=== PATIENT | male | born 1950 | race African-American/Black ===

== ENCOUNTER 2016-06-16 16:01 | Inpatient (IN) | payer MEDICARE ==
--- NOTE | 2016-06-16 16:24 | EDPRACDOC ---
- General Information Information Source: Patient Mode Of Arrival: Ambulance - History of Present Illness Onset: Today HPI: Patient reports increased SOB today, states "it's my congestive heart failure". Patient denies fever, chills, reports cough without sputum production. No CP. Shortness of Breath: Mild Relevant History: Reports: Heart Failure (CHF) Cough: Reports: Non-productive SOB Worsens with: Reports: Exertion, Coughing SOB Improves with: Reports: Rest Associated Signs and symptoms: Reports: Cough <Carmen Salter - Last Filed: 06/16/16 17:48> <Maritza Estrada - Last Filed: 06/16/16 18:03> - General Information Chief Complaint: Dyspnea/Resp distress Stated Complaint: RESP Time Seen by Provider: 06/16/16 16:06 Home Medications: Home Medications Aspirin [Aspirin, Chewable] 81 mg PO DAILY 10/18/12 Omeprazole [Prilosec] 20 mg PO DAILY 03/31/16 Hydralazine HCl 50 mg PO TID #90 04/02/16 Isosorbide Dinitrate 10 mg PO TID #90 tablet 04/02/16 Albuterol Sulfate [Proair Hfa] 2 puff INH Q4-6H PRN 06/16/16 Amiodarone [Cordarone, Pacerone] 200 mg PO BID 06/16/16 Furosemide [Lasix] 20 mg PO BID 06/16/16 Losartan Potassium [Cozaar] 100 mg PO DAILY 06/16/16 Allergies/Adverse Reactions: Allergies Allergy/AdvReac Type Severity Reaction Status Date / Time No Known Allergies Allergy Verified 06/16/16 16:11 - Treatment Prior to ED Arrival Reported Medications/Treatment [employer] [facility] Treatment BLS IV No <Carmen Salter - Last Filed: 06/16/16 17:48> - Treatment Prior to ED Arrival Reported Medications/Treatment [employer] EMS Treatment BLS IV No <Maritza Estrada - Last Filed: 06/16/16 18:03> ED Past Medical History - History Reviewed Yes Nurses notes reviewed and agree except as marked - Patient Medical History Cardiac History: Reports: Hypertension, Congestive Heart Failure Psychological History: Denies: Depression, Substance Use Disorder Systemic History: Denies: Cancer Surgical History: Reports: Tonsillectomy/Adnoidectomy - Family Medical History Reports: Cardiac Disorders (Mother) - Social Medical History Smoking Status: Heavy tobacco smoker (5 or more cigarettes/day or daily pipe/ cigar) Social History: Denies: Substance Use Disorder ETOH: None Substance Abuse: None Lives In: Home <Carmen Salter - Last Filed: 06/16/16 17:48> EDM Review of Systems - Review of Systems ROS Negative Except as Marked: Yes All systems reviewed and were negative except as marked Constitutional: No Symptoms Reported Eyes: No Symptoms Reported Ears: No Symptoms Reported Throat: No Symptoms Reported Nose: No Symptoms Reported Mouth: No Symptoms Reported Respiratory: Cough, Shortness of Breath Cardiovascular: No Symptoms Reported Gastrointestinal: No Symptoms Reported Genitourinary: No Symptoms Reported Neurological: No Symptoms Reported <Carmen Salter - Last Filed: 06/16/16 17:48> - Physical Exam Constitutional: Alert (Awake), No apparent distress Oriented to: Time, Person, Place Last recorded Vital Signs: Last Vital Signs Temp 98.8 F 06/16/16 16:08 Pulse 62 06/16/16 16:08 Resp 16 06/16/16 16:08 BP 169/75 06/16/16 16:08 Pulse Ox 96 06/16/16 16:08 Oxygen Pulse Oxygen Saturation 96 O2 Device Oxygen Flow Rate Fraction of Inspired Oxygen ( FIO2) - HEENT Head: Normal ( normocephalic) Eye Exam: Normal (PERRL, EOMI, Sclera white) Oropharynx: Normal (Pharynx:Moist without exudate,Gums-no swelling) Tympanic Membrane: Normal ENT EAC: Normal TMJ: Normal Nose: No Symptoms Reported (septum midline) Neck: Normal (FROM, trachea at midline) - Respiratory/Cardiovascular Respiratory: Normal - CTA (BBS clear to auscultation without adventitious sounds ) Cardiovascular: Normal (RRR without murmur, gallop or rub) - GI Auscultation: Normal (NABS) Tenderness: Non tender Rectal Exam: Heme negative stool GI Comment: Patient reported 1 episode of bright red blood per rectum 3 days ago with a bowel movement, denies dark/tarry stools or multiple episodes of blood in stool. - Musculoskeletal Back: Normal (Non-Tender) Extremities: Other (+1 pitting edema) - Integumentary Skin: Normal, Warm, Dry Lymphatics: Normal (no adenopathy) - Neurologic Memory Impaired: Normal Motor Function: Normal (Normal tone, Pulses 2+ No cyanosis or edema, FROM) Mood Description: Normal <Giana Saltertany Vickey - Last Filed: 06/16/16 17:48> - Physical Exam Last recorded Vital Signs: Last Vital Signs Temp 98.8 F 06/16/16 16:08 Pulse 69 06/16/16 17:12 Resp 20 06/16/16 17:12 BP 156/79 06/16/16 17:12 Pulse Ox 94 06/16/16 17:12 Oxygen Pulse Oxygen Saturation 94 O2 Device Oxygen Flow Rate Fraction of Inspired Oxygen ( FIO2) <Maritza Estrada - Last Filed: 06/16/16 18:03> ED SOB MDM - Re-evaluation Re-evaluation 1 Re-evaluation Time: 17:48 Re-evaluation: O2 sats dropped to 89% on RA while ambulating. - Results Result Diagrams: 06/16/16 16:15 06/16/16 16:15 - EKG EKG #1 EKG Time: 16:17 -: Yes EKG interpreted by me Rate: bpm: 59 [place]: Normal Block: 2 ST: Normal <Carmen Salter - Last Filed: 06/16/16 17:48> - Results Result Diagrams: 06/16/16 16:15 06/16/16 16:15 Results: WBC 8.1 xk/uL (3.8-10.8) 06/16/16 16:15 RBC 3.22 xM/uL (4.70-6.10) L 06/16/16 16:15 Hgb 8.2 g/dL (14.0-18.0) L 06/16/16 16:15 Hct 25.8 % (42-52) L 06/16/16 16:15 MCV 80 fL (80-94) 06/16/16 16:15 MCH 25.5 pg (27-32) L 06/16/16 16:15 MCHC 31.8 g/dl (33-36) L 06/16/16 16:15 RDW 18.7 % (11.5-14.5) H 06/16/16 16:15 Plt Count 244 xk/uL (130-400) 06/16/16 16:15 MPV 9.0 fL (7.4-10.4) 06/16/16 16:15 Neut % (Auto) 65.4 % (45-76) 06/16/16 16:15 Lymph % (Auto) 22.4 % (17-44) 06/16/16 16:15 [place] % (Auto) 10.3 % (3-10) H 06/16/16 16:15 Eos % (Auto) 0.6 % (0-5) 06/16/16 16:15 Baso % (Auto) 1.3 % (0-2) 06/16/16 16:15 Absolute Neuts (auto) 5.27 xk/uL (1.7-8.2) 06/16/16 16:15 Absolute Lymphs (auto) 1.78 xk/uL (0.65-4.75) 06/16/16 16:15 Platelet Estimate Occ giant platelet (NORMAL) 06/16/16 16:15 RBC Morphology 1+ hypo 2+ polychrom 06/16/16 16:15 RBC Morphology 1+ hypo 2+ polychrom 06/16/16 16:15 PT 10.6 SEC (9.2-11.2) 06/16/16 16:15 INR 1.0 06/16/16 16:15 APTT 24.3 SEC (22-35) 06/16/16 16:15 Puncture Site Left radial 06/16/16 16:45 pH 7.470 pH UNITS (7.35-7.45) H 06/16/16 16:45 pCO2 31.0 mmHg (35-45) L 06/16/16 16:45 pO2 68.0 mmHg (80-100) L 06/16/16 16:45 HCO3 22.6 MMOL/L (22-26) 06/16/16 16:45 Total CO2 23.6 MMOL/L (23-27) 06/16/16 16:45 Base Excess -0.2 (+/- 2) 06/16/16 16:45 FiO2 % 21 06/16/16 16:45 Specimen Drawn By Dp 06/16/16 16:45 Sodium 143 mEq/L (137-146) 06/16/16 16:15 Potassium 3.6 mEq/L (3.5-5.1) 06/16/16 16:15 Chloride 108 mEq/L (98-107) H 06/16/16 16:15 Carbon Dioxide 24 mMOL/L (22-33) 06/16/16 16:15 Anion Gap 15 mEq/L (8-16) 06/16/16 16:15 BUN 25 MG/DL (9-20) H 06/16/16 16:15 Creatinine 2.20 MG/DL (0.66-1.25) H 06/16/16 16:15 Estimated GFR (MDRD) 36 mL/min (>=60) L 06/16/16 16:15 Glucose 87 MG/DL (70-99) 06/16/16 16:15 Calculated Osmolality 278 MOs/Kg (270-290) 06/16/16 16:15 Calcium 8.8 MG/DL (8.4-10.2) 06/16/16 16:15 Total Bilirubin 0.6 MG/DL (0.2-1.3) 06/16/16 16:15 AST 50 IU/L (17-59) 06/16/16 16:15 ALT 65 IU/L (21-72) 06/16/16 16:15 Alkaline Phosphatase 134 IU/L (50-160) 06/16/16 16:15 Creatine Kinase 215 IU/L (55-170) H 06/16/16 16:15 CK-MB (CK-2) 1.8 ng/mL (0-4.5) 06/16/16 16:15 Troponin I 0.07 ng/mL (<.04) 06/16/16 16:15 Jse-B-Zcnvzudpslv Pept 4740 pg/mL (0-900) H 06/16/16 16:15 Total Protein 7.9 G/DL (6.3-8.2) 06/16/16 16:15 Albumin 4.3 G/DL (3.5-5.0) 06/16/16 16:15 Urine Color Yellow 06/16/16 16:50 Urine Clarity Clear 06/16/16 16:50 Urine pH 5.0 (5.0-8.0) 06/16/16 16:50 Ur Specific [place] 1.020 (1.003-1.035) 06/16/16 16:50 Urine Protein Trace (NEG/TRACE) 06/16/16 16:50 Urine Glucose (UA) Neg (NEGATIVE) 06/16/16 16:50 Urine Ketones Neg (NEGATIVE) 06/16/16 16:50 Urine Occult Blood Neg (NEG/TRACE) 06/16/16 16:50 Urine Nitrite Neg (NEGATIVE) 06/16/16 16:50 Urine Bilirubin Neg (NEGATIVE) 06/16/16 16:50 Urine Urobilinogen 2 MG/DL (0-1) H 06/16/16 16:50 Ur Leukocyte Esterase Trace (NEGATIVE) 06/16/16 16:50 Urine RBC 0-2 (0-2) 06/16/16 16:50 Urine WBC 2-5 (0-2) H 06/16/16 16:50 Ur Epithelial Cells 2+ 06/16/16 16:50 Urine Bacteria Few (NEG/FEW) 06/16/16 16:50 Hyaline Casts 0-2 (0-2) 06/16/16 16:50 Urine Mucus Occ (NEG/OCC) 06/16/16 16:50 Lab Results 06/16/16 06/16/16 06/16/16 16:50 16:45 16:15 WBC RBC Hgb Hct MCV MCH MCHC RDW Plt Count MPV Neut % (Auto) Lymph % (Auto) [place] % (Auto) Eos % (Auto) Baso % (Auto) Absolute Neuts (auto) Absolute Lymphs (auto) Platelet Estimate RBC Morphology PT 10.6 INR 1.0 APTT 24.3 Puncture Site Left radial pH 7.470 H pCO2 31.0 L pO2 68.0 L HCO3 22.6 Total CO2 23.6 Base Excess -0.2 FiO2 % 21 Specimen Drawn By Dp Sodium Potassium Chloride Carbon Dioxide Anion Gap BUN Creatinine Estimated GFR (MDRD) Glucose Calculated Osmolality Calcium Total Bilirubin AST ALT Alkaline Phosphatase Creatine Kinase CK-MB (CK-2) Troponin I Gtl-L-Mmkgrjncivs Pept Total Protein Albumin Urine Color Yellow Urine Clarity Clear Urine pH 5.0 Ur Specific [place] 1.020 Urine Protein Trace Urine Glucose (UA) Neg Urine Ketones Neg Urine Occult Blood Neg Urine Nitrite Neg Urine Bilirubin Neg Urine Urobilinogen 2 H Ur Leukocyte Esterase Trace Urine RBC 0-2 Urine WBC 2-5 H Ur Epithelial Cells 2+ Urine Bacteria Few Hyaline Casts 0-2 Urine Mucus Occ 06/16/16 06/16/16 16:15 16:15 WBC 8.1 RBC 3.22 L Hgb 8.2 L Hct 25.8 L MCV 80 MCH 25.5 L MCHC 31.8 L RDW 18.7 H Plt Count 244 MPV 9.0 Neut % (Auto) 65.4 Lymph % (Auto) 22.4 [place] % (Auto) 10.3 H Eos % (Auto) 0.6 Baso % (Auto) 1.3 Absolute Neuts (auto) 5.27 Absolute Lymphs (auto) 1.78 Platelet Estimate Occ giant platelet RBC Morphology 2+ polychrom PT INR APTT Puncture Site pH pCO2 pO2 HCO3 Total CO2 Base Excess FiO2 % Specimen Drawn By Sodium 143 Potassium 3.6 Chloride 108 H Carbon Dioxide 24 Anion Gap 15 BUN 25 H Creatinine 2.20 H Estimated GFR (MDRD) 36 L Glucose 87 Calculated Osmolality 278 Calcium 8.8 Total Bilirubin 0.6 AST 50 ALT 65 Alkaline Phosphatase 134 Creatine Kinase 215 H CK-MB (CK-2) 1.8 Troponin I 0.07 Hhu-P-Ouzrlepafmi Pept 4740 H Total Protein 7.9 Albumin 4.3 Urine Color Urine Clarity Urine pH Ur Specific [place] Urine Protein Urine Glucose (UA) Urine Ketones Urine Occult Blood Urine Nitrite Urine Bilirubin Urine Urobilinogen Ur Leukocyte Esterase Urine RBC Urine WBC Ur Epithelial Cells Urine Bacteria Hyaline Casts Urine Mucus - Diagnostic Imaging Chest Image interpreted by: Radiologist Diagnostic Imaging Comments: Similar appearance to prior studies with cardiomegaly and interstitial pulmonary edema suspicious for mild congestive heart failure. <Maritza Estrada - Last Filed: 06/16/16 18:03> <Carmen Salter - Last Filed: 06/16/16 17:48> - Departure Yes I personally saw and evaluated the patient. Disposition: Admit IP To This Hospital Education/Counseling Given To: Patient Education/Counseling Given Regarding: Diagnosis, Treatment Decision to Admit Time: 18:03 Decision to admit date: 06/16/16 Decision to admit: from ED - Physician Consulted Hospitalist Provider Called: Iraj Higginbotham <Maritza Estrada - Last Filed: 06/16/16 18:03> - Departure Condition: Fair Final Diagnosis: ADHF (acute decompensated heart failure), Hypoxia, ACUTE ON CHRONIC ANEMIA, Chronic renal failure Instructions: *Heart Failure (Activity, Diet, Worsening Symptoms, Weight Monitoring)(ED), Renal Failure Diet (GEN) Referrals: Yonis Salazar MD [Primary Care Provider] - One Week
[2016-06-16 16:49] LABS: AUTOMATED EOSINOPHIL 0.6 % (0-5)
--- NOTE | 2016-06-16 16:49 | DIRPT ---
CLINICAL DATA: 65-year-old with shortness of breath since yesterday. History of congestive heart failure. EXAM: CHEST 2 VIEW COMPARISON: 03/31/2016, 01/17/2014 and 01/16/2014. FINDINGS: Stable mild cardiomegaly with vascular congestion, fissural thickening and [place] B lines consistent with interstitial pulmonary edema. No confluent airspace opacity or significant pleural effusion. Prominent nipple shadows are noted bilaterally. The bones appear unchanged. IMPRESSION: Similar appearance to prior studies with cardiomegaly and interstitial pulmonary edema suspicious for mild congestive heart failure. Electronically Signed By: Yasir Fischer M.D. On: 06/16/2016 16:47
[2016-06-16 16:52] LABS: ALLEN'S TEST PASS; BEb -0.2 (+/- 2); TCO2 23.6 MMOL/L (23-27)
[2016-06-16 16:53] LABS: ABG Draw Site Left Radial; ABG Draw Tech DP
[2016-06-16 16:55] LABS: AUTOMATED BASOPHIL 1.3 % (0-2); AUTOMATED LYMPH 22.4 % (17-44); AUTOMATED MONOCYTE 10.3 % (3-10); AUTOMATED NEUTROPHIL 65.4 % (45-76)
[2016-06-16 16:56] LABS: PARTIAL THROMB. TIME 24.3 SEC (22-35)
[2016-06-16 16:57] LABS: BLOOD UREA NITROGEN 25 MG/DL (9-20); CALCIUM 8.8 MG/DL (8.4-10.2); CALCULATED OSMOLALITY 278 MOs/Kg (270-290); CHLORIDE 108 mEq/L (98-107); CPK TOTAL WITH POSSIBLE MB 215 IU/L (55-170); GLUCOSE 87 MG/DL (70-99); SODIUM LEVEL 143 mEq/L (137-146); TOTAL PROTEIN 7.9 G/DL (6.3-8.2)
[2016-06-16] MEDS ORDERED: FUROSEMIDE 40 MG/4 ML VIAL IV ONE (16:58)
[2016-06-16 17:12] LABS: RBC/URINE 0-2 (0-2)
[2016-06-16 17:12] LABS: CPKMB 1.8 ng/mL (0-4.5)
[2016-06-16 17:22] LABS: LEUKOCYTES/URINE TRACE (NEGATIVE); NITRITE/URINE NEG (NEGATIVE); URINE OCCULT BLOOD NEG (NEG/TRACE)
--- NOTE | 2016-06-16 19:05 | HISTPHYS ---
- Chief Complaint shortness of breath - History of Present Illness PRIMARY CARE PROVIDER: Dr. Salazar HPI: The patient anuradha 65 yo man who presents with shortness of breath. He denies any chest pain at this time. Onset: 2 days ago. Duration: progressively worsening. Character: couldn't get a good breath. Worsened to the point that he could not get a good breath even sitting. Alleviated by: Nothing. Exacerbated by: any exertion. Associated Symptoms: Coughing productive of white sputum. Wheezing. Chills. Thinks he had a fever. Diaphoresis. No chest pain or palpitations. No leg swelling. No weight gain. He has also noted blood in his stool for 2 days but stopped 2 days ago. Reports colonoscopy in [place] 3 months ago; said it was normal but was told to start PPI. Treatments: none at home except usual medications. Per previous consult by Dr. Siddiqui, the patient has significant sinus node dysfunction and his beta blockers were stopped for this reason. - Medical History Cardiac History: Reports: Hypertension, Congestive Heart Failure (ECHO 03/17: EF55-60%. Mild-mod TR, Mild MR. RV pressure 51mmHg) Systemic History: Denies: Cancer Psychological History: Denies: Depression, Substance Use Disorder ECHOCARDIOGRAM 03/31/2016: FINDINGS ------- Procedure:2D images, m-mode, color and spectral Doppler were obtained and reviewed. ECG rhythm:Sinus rhythm. Study quality:This was a technically adequate study. Left Ventricle:The left ventricular size is normal. There is borderline concentric left ventricular hypertrophy. There is normal global left ventricular contractility. Overall left ventricular systolic function is normal with, an EF between 55 - 60 %. The diastolic filling pattern is normal for the age of the patient. Right Ventricle:The right ventricle is normal in size and function. Left Atrium:The left atrium is normal in size. Right Atrium:The right atrium is normal in size and function. Aortic Valve:The aortic valve is trileaflet and appears structurally normal. There is mild aortic valve sclerosis. There is mild aortic regurgitation. The aortic pressure half-time by doppler is 563ms. Mild aortic stenosis with peak/mean pressure gradient of 23mmHg / 13mmHg , the aortic valve area by continuity equation is 1.99cm2. Mitral Valve:Normal appearing mitral valve. There is trace to mild mitral regurgitation. Tricuspid Valve:The tricuspid valve appears structurally normal. Mild-to- moderate tricuspid regurgitation present. The right ventricular systolic pressure, as measured by Doppler, is 51mmHg. Pulmonic Valve:The pulmonic valve is normal. There is no pulmonic regurgitation present. Aorta: The aortic root, ascending aorta and aortic arch appear TDS. IVC:The inferior vena cava is dilated with poor inspiratory collapse which is consistent with estimated right atrial pressure of 20 mmHg. Pericardium:There is no pericardial effusion. CONCLUSIONS 1. There is borderline concentric left ventricular hypertrophy. 2. Overall left ventricular systolic function is normal with, an EF between 55 - 60 %. 3. The diastolic filling pattern is normal for the age of the patient. 4. The left atrium is normal in size. 5. There is mild aortic regurgitation. 6. Mild aortic stenosis with peak/mean pressure gradient of 23mmHg / 13mmHg , the aortic valve area by continuity equation is 1.99cm2. 7. There is trace to mild mitral regurgitation. 8. Vmfe-[id number]-elrwyefe tricuspid regurgitation present. 9. The right ventricular systolic pressure, as measured by Doppler, is 51mmHg. Reports colonoscopy in [place] 3 months ago; said it was normal but was told to start PPI. - Surgical History Reports: Tonsillectomy/Adnoidectomy - Medictions/Allergies Allergies No Known Allergies Allergy (Verified 06/16/16 16:11) Current Medication List: Reviewed Home Medications Aspirin [Aspirin, Chewable] 81 mg PO DAILY 10/18/12 Omeprazole [Prilosec] 20 mg PO DAILY 03/31/16 Hydralazine HCl 50 mg PO TID #90 04/02/16 Isosorbide Dinitrate 10 mg PO TID #90 tablet 04/02/16 Albuterol Sulfate [Proair Hfa] 2 puff INH Q4-6H PRN 06/16/16 Amiodarone [Cordarone, Pacerone] 200 mg PO BID 06/16/16 Furosemide [Lasix] 20 mg PO BID 06/16/16 Losartan Potassium [Cozaar] 100 mg PO DAILY 06/16/16 - Family History Reports: Cardiac Disorders (Mother: MS.), Respiratory Disorders (Father: asthma. ) - Social History Smoking Status: Heavy tobacco smoker (5 or more cigarettes/day or daily pipe/ cigar) (half ppd. Started 16 yo.) Social History: Denies: Alcohol Use, Substance Use Disorder - Review of Systems GENERAL: Fever, chills, or diaphoresis, and fatigue/malaise. HEENT: No ear pain or discharge. No nasal discharge or bleeding. No throat pain or swelling. No eye pain or eye redness. RESPIRATORY: Shortness of breath. Coughing productive of white sputum. Wheezing. CARDIOVASCULAR: No chest pain or palpitations. GI: No abdominal pain, nausea, vomiting, diarrhea, constipation, or bloody stool. NEUROLOGICAL: No headache or focal weakness. INTEGUMENT: no rashes, itching, or lesions. LYMPHATIC SYSTEM: no lymph node swelling or pain. MUSCULOSKELETAL: no pain or joint swelling. GENITOURINARY: No dysuria or hematuria. ENDOCRINE: No polyuria or polydipsia. HEME: No chronic anemia, bleeding, or easy bruising. - Physical Exam Vital Signs: Initial Vitals Temperature 98.8 F 06/16/16 16:08 Pulse Rate 62 06/16/16 16:08 Respiratory Rate 16 06/16/16 16:08 Blood Pressure 169/75 06/16/16 16:08 Pulse Oxygen Saturation 96 06/16/16 16:08 Vital Signs - 24 hr 06/16/16 06/16/16 06/16/16 16:08 16:11 16:28 Temperature 98.8 F Pulse Rate 62 66 Respiratory 16 21 21 Rate Blood Pressure 169/75 155/73 Pulse Oxygen 96 93 Saturation 06/16/16 17:12 Temperature Pulse Rate 69 Respiratory 20 Rate Blood Pressure 156/79 Pulse Oxygen 94 Saturation - Other Exam Other Exam Findings: GENERAL: Ill-appearing, well nourished, in acute distress. HEENT: Normocephalic, atraumatic; pupils equal and round. Nares patent, without discharge or bleeding. No oropharyngeal lesions or erythema. Mucous membranes are dry. NECK: is supple, no masses, trachea midline. RESPIRATORY: Clear to auscultation bilaterally. Chest wall movements are symmetric. No use of accessory muscles to breathe. Bilateral coarse breath sounds, rhonchi and rales. Scattered bilateral wheezing. Intermittent tachypnea. CARDIOVASCULAR: Normal S1, S2. No rubs, or gallops. PMI non-displaced. Carotids : no carotid bruits. No bradycardia or tachycardia. DP pulses 2+ bilaterally. Minimal JVD. GI: soft, nontender, non-distended, normal active bowel sounds. No hepatosplenomegaly. INTEGUMENT: Clean, dry, and intact. No rashes. No lesions. MUSCULOSKELETAL: Moving all extremities. No cyanosis. No clubbing. Edema: none bilaterally. NEUROLOGICAL: Cranial nerves 2-12 grossly intact. Motor 5/5 throughout. Reflexes : 2+ bilaterally. Babinski: toes downgoing bilaterally. Intact Finger to nose. Sensory grossly intact to light touch. Intact rapid alternating movements bilaterally. No pronator drift. PSYCHIATRIC: Fully oriented. Normal and appropriate affect. LYMPHATIC: No cervical lymphadenopathy. No supraclavicular lymphadenopathy. - Lab Results Laboratory Results - last 24 hr 06/16/16 06/16/16 06/16/16 16:15 16:15 16:15 WBC 8.1 RBC 3.22 L Hgb 8.2 L Hct 25.8 L MCV 80 MCH 25.5 L MCHC 31.8 L RDW 18.7 H Plt Count 244 MPV 9.0 Neut % (Auto) 65.4 Lymph % (Auto) 22.4 Slope % (Auto) 10.3 H Eos % (Auto) 0.6 Baso % (Auto) 1.3 Absolute Neuts (auto) 5.27 Absolute Lymphs (auto) 1.78 Platelet Estimate Occ giant platelet RBC Morphology 2+ polychrom PT 10.6 INR 1.0 APTT 24.3 Puncture Site pH pCO2 pO2 HCO3 Total CO2 Base Excess FiO2 % Specimen Drawn By Sodium 143 Potassium 3.6 Chloride 108 H Carbon Dioxide 24 Anion Gap 15 BUN 25 H Creatinine 2.20 H Estimated GFR (MDRD) 36 L Glucose 87 Calculated Osmolality 278 Calcium 8.8 Total Bilirubin 0.6 AST 50 ALT 65 Alkaline Phosphatase 134 Creatine Kinase 215 H CK-MB (CK-2) 1.8 Troponin I 0.07 Vqd-R-Bgjktdulcdh Pept 4740 H Total Protein 7.9 Albumin 4.3 Urine Color Urine Clarity Urine pH Ur Specific Trimble Urine Protein Urine Glucose (UA) Urine Ketones Urine Occult Blood Urine Nitrite Urine Bilirubin Urine Urobilinogen Ur Leukocyte Esterase Urine RBC Urine WBC Ur Epithelial Cells Urine Bacteria Hyaline Casts Urine Mucus 06/16/16 06/16/16 06/16/16 16:45 16:50 18:48 WBC RBC Hgb Hct MCV MCH MCHC RDW Plt Count MPV Neut % (Auto) Lymph % (Auto) Slope % (Auto) Eos % (Auto) Baso % (Auto) Absolute Neuts (auto) Absolute Lymphs (auto) Platelet Estimate RBC Morphology PT INR APTT Puncture Site Left radial pH 7.470 H pCO2 31.0 L pO2 68.0 L HCO3 22.6 Total CO2 23.6 Base Excess -0.2 FiO2 % 21 Specimen Drawn By Dp Sodium Potassium Chloride Carbon Dioxide Anion Gap BUN Creatinine Estimated GFR (MDRD) Glucose Calculated Osmolality Calcium Total Bilirubin AST ALT Alkaline Phosphatase Creatine Kinase 242 H CK-MB (CK-2) Troponin I Bbm-Y-Jcyjrqkbaou Pept Total Protein Albumin Urine Color Yellow Urine Clarity Clear Urine pH 5.0 Ur Specific Trimble 1.020 Urine Protein Trace Urine Glucose (UA) Neg Urine Ketones Neg Urine Occult Blood Neg Urine Nitrite Neg Urine Bilirubin Neg Urine Urobilinogen 2 H Ur Leukocyte Esterase Trace Urine RBC 0-2 Urine WBC 2-5 H Ur Epithelial Cells 2+ Urine Bacteria Few Hyaline Casts 0-2 Urine Mucus Occ - Diagnostic Findings EK bpm. Sinus bradycardia. Reviewed EKG personally. Chest x-ray, viewed personally: EXAM: CHEST 2 VIEW COMPARISON: 03/31/2016, 01/17/2014 and 01/16/2014. FINDINGS: Stable mild cardiomegaly with vascular congestion, fissural thickening and Sneha B lines consistent with interstitial pulmonary edema. No confluent airspace opacity or significant pleural effusion. Prominent nipple shadows are noted bilaterally. The bones appear unchanged. IMPRESSION: Similar appearance to prior studies with cardiomegaly and interstitial pulmonary edema suspicious for mild congestive heart failure. - Assessment (1) Acute on chronic diastolic congestive heart failure I50.33 - ACUTE ON CHRONIC DIASTOLIC (CONGESTIVE) HEART FAILURE Acute Present on Admission: Yes Per previous consult by Dr. Siddiqui, the patient has significant sinus node dysfunction and his beta blockers were stopped for this reason. The patient has both acute and chronic heart failure. Heart failure type: presumed diastolic. Echocardiogram results from past: Echo 03/2016: EF 55%. Plan: Admit to PCU with telemetry. CHF order set. Diet of 2 g Na. Daily weights with strict I/O's. No IVF unless patient is NPO. As tolerated, give ALICIA inhibitor or ARB. Give Lasix IV scheduled. Replace potassium. Monitor heart rate, blood pressure, and respiratory status carefully. Provide support with oxygen as needed. Provide teaching regarding heart failure, 2g Na diet, daily weights, signs of acute heart failure. (2) Anemia D64.9 - ANEMIA, UNSPECIFIED Acute Present on Admission: Yes Qualifiers: Anemia type: iron deficiency Iron deficiency anemia type: unspecified iron deficiency Qualified Code(s): D50.9 - Iron deficiency anemia, unspecified HISTORY 03/2016: Patient with anemia. MCV is normal, MCH, MCHC are low. This would suggest iron deficiency or chronic disease etiology. Suggest outpatient workup. Patient does have some renal insufficiency. It may be secondary to that. Iron is low, B12 low normal and folate-normal. UPDATE 06/2016: Anemia now worse. Patient reports he had some black and bloody stool 2 days ago but it resolved. Plan: Check labs. Hemoccult. (3) Hypoxia R09.02 - HYPOXEMIA Acute Present on Admission: Yes Plan: O2 by NC and increase to V mask if needed. (4) Tobacco abuse Z72.0 - TOBACCO USE Acute Present on Admission: Yes Counseled to quit. (5) Chronic kidney disease, stage 3 N18.3 - CHRONIC KIDNEY DISEASE, STAGE 3 (MODERATE) Acute Present on Admission: Yes Slightly above baseline. Plan: Avoid nephrotoxins. Monitor Cr. (6) Acute bronchitis J20.9 - ACUTE BRONCHITIS, UNSPECIFIED Suspected Present on Admission: Yes Rhonchi on exam. No pneumonia visible on x-ray. Could have bronchitis. Plan: If no improvement then consider antibiotics. Case Care Discussed with: Patient, Nursing Staff
[2016-06-16 19:08] LABS: CPK TOTAL WITH POSSIBLE MB 242 IU/L (55-170)
[2016-06-16 19:24] LABS: CPKMB 1.7 ng/mL (0-4.5)
[2016-06-16] MEDS ORDERED: Vaccine Screening Complete SCH (21:00)
[2016-06-16] MEDS ORDERED: ALBUTEROL 0.083% 3 ML NEB NEB PRN (22:15)
[2016-06-16] MEDS ORDERED: NITROGLYCERINE 0.4 MG TAB SL PRN (22:15)
[2016-06-16] MEDS ORDERED: Albuterol/Ipratropium Neb 3 ML NEB NEB PRN (22:15)
[2016-06-16] MEDS ORDERED: MORPHINE 2 MG/ML INJECTION IV PRN (22:15)
[2016-06-16 22:46] LABS: FOLATES 11.7 ng/mL (>2.76)
[2016-06-16 22:54] LABS: % SATURATION 4.7 % (20-50)
[2016-06-16] MEDS ORDERED: Pharmacy Order Set Alert SCH (23:00)
[2016-06-17] MEDS: AMIODARONE 200 MG TAB PO SCH ×3 (00:02→21:19)
[2016-06-17] MEDS: ISOSORBIDE DINITRATE 10 MG TAB PO SCH ×4 (00:02→21:19)
[2016-06-17] MEDS ORDERED: ACETAMINOPHEN 325 MG/TAB TABLET PO PRN (04:17)
[2016-06-17] MEDS ORDERED: TEMAZEPAM 15 MG CAP PO PRN (04:17)
[2016-06-17] MEDS ORDERED: ONDANSETRON HCL 4 MG/2 ML VIAL IV PRN (04:17)
[2016-06-17] MEDS ORDERED: ACETAMINOPHEN 325 MG SUPP PR PRN (04:17)
[2016-06-17] MEDS ORDERED: PROMETHAZINE 25 MG/ML VIAL IV PRN (04:17)
[2016-06-17] MEDS ORDERED: SENNA CONCENTRATE TAB PO PRN (04:17)
[2016-06-17] MEDS ORDERED: BENZONATATE 100 MG PERLES PO PRN (04:17)
[2016-06-17] MEDS ORDERED: GUAIFEN 100 MG-DEXTROMETH 10 MG PER 5 ML PO PRN (04:17)
[2016-06-17] MEDS ORDERED: Docusate Sodium 100 MG CAP PO PRN (04:17)
[2016-06-17] MEDS ORDERED: BISACODYL 5 MG TAB PO PRN (04:17)
[2016-06-17] MEDS ORDERED: SIMETHICONE 80 MG TAB PO PRN (04:17)
[2016-06-17 05:04] VITALS: BMI 25.4
[2016-06-17] MEDS: FUROSEMIDE 40 MG/4 ML VIAL IV SCH ×3 (05:22→21:19)
[2016-06-17] MEDS: PANTOPRAZOLE 40 MG TAB PO SCH (05:22)
[2016-06-17] MEDS: LOSARTAN POTASSIUM 50 MG TAB PO SCH (08:00)
[2016-06-17] MEDS: ASPIRIN (CHEWABLE) 81 MG TAB PO SCH (08:00)
[2016-06-17] MEDS ORDERED: Non-Formulary Medication ITEM (Omeprazole 20 MG) PO SCH (09:00)
[2016-06-17] MEDS ORDERED: Non-Formulary Medication ITEM (Losartan Potassium [Cozaar] 100 MG) PO SCH (09:00)
--- NOTE | 2016-06-17 17:05 | GENMEDPROG ---
Subjective Note: Patient feeling significantly better has weaned off oxygen. Notes Reviewed: Yes Events from last night noted and discussed with Clinical Staff Current Medication List: Reviewed Currently: Reports: Ambulating. Denies: Wheezing, SOB, Sputum, Nausea and Vomiting DVT Prophylaxis: Yes - Physical Examination Vital Signs and I&O: Last Vital Signs Temp 97.8 F 06/17/16 11:34 Pulse 57 L 06/17/16 11:34 Resp 17 06/17/16 11:34 BP 169/72 06/17/16 11:34 Pulse Ox 98 06/17/16 11:34 Oxygen Pulse Oxygen Saturation 98 O2 Device Nasal Cannula Oxygen Flow Rate 2 Fraction of Inspired Oxygen ( FIO2) Intake & Output 06/14/16 06/15/16 06/16/16 06/17/16 23:59 23:59 23:59 23:59 Intake Total 480 Output Total 1200 1325 Balance -1200 -845 Patient's weight 71.668 kg General: Alert, Oriented x3, No acute distress, Well appearing, Well nourished HEENT: Normal (Normocephalic, atraumatic;EOMI.Sclera white, Nares patent, without discharge or bleeding. No oropharyngeal lesions or erythema. Mucous membranes are dry.) Lymphatics: Normal (no adenopathy) Respiratory: negative: Accessory Muscle Use, Rales, Rhonchi, Wheezes Cardiovascular: Regular rate and rhythm (No bradycardia or tachycardia), Normal S1, No Gallops,Rubs/Murmurs, Normal S2, Good Pedal Pulses (DP pulses 2+ bilaterally) GI: Normal bowel sounds (normal active sounds), Soft (non-distended), Non tender , No hepatospenomegaly, No masses Extremities/Musculoskeletal: Normal pulses (DP pulses 2+ bilaterally) Skin: Warm,Dry and Intact, No rashes, No significant lesion Neurological: Strength at 5/5 X4 ext (Motor 5/5 throughout.), Normal tone, Cranial nerves 3-12 NL ( 2-12 grossly intact.) Lab/DI/Studies Reviewed: Abnormal Lab Results 06/16/16 06/16/16 06/16/16 16:15 16:15 16:50 RBC 3.22 L Hgb 8.2 L Hct 25.8 L MCH 25.5 L MCHC 31.8 L RDW 18.7 H Josephine % (Auto) 10.3 H Chloride 108 H BUN 25 H Creatinine 2.20 H Estimated GFR (MDRD) 36 L Iron % Saturation Creatine Kinase 215 H Iez-T-Ruoroqaruji Pept 4740 H Urine Urobilinogen 2 H Urine WBC 2-5 H 06/16/16 06/16/16 18:48 21:25 RBC Hgb Hct MCH MCHC RDW Josephine % (Auto) Chloride BUN Creatinine Estimated GFR (MDRD) Iron 18.0 L % Saturation 4.7 L Creatine Kinase 242 H Lcb-W-Ysmrcszgvhr Pept Urine Urobilinogen Urine WBC - Assessment (1) Acute on chronic diastolic congestive heart failure Acute I50.33 - ACUTE ON CHRONIC DIASTOLIC (CONGESTIVE) HEART FAILURE Comment /Plan: Per previous consult by Dr. Siddiqui, the patient has significant sinus node dysfunction and his beta blockers were stopped for this reason. The patient has both acute and chronic heart failure. Heart failure type: presumed diastolic. Echocardiogram results from past: Echo 03/2016: EF 55%. Plan: Admit to PCU with telemetry. CHF order set. Diet of 2 g Na. Daily weights with strict I/O's. No IVF unless patient is NPO. As tolerated, give ALICIA inhibitor or ARB. Give Lasix IV scheduled. Replace potassium. Monitor heart rate, blood pressure, and respiratory status carefully. Provide support with oxygen as needed. Provide teaching regarding heart failure, 2g Na diet, daily weights, signs of acute heart failure. He is tolerating therapy well will check ambulating O2 sats in a.m.. (2) Anemia Acute D64.9 - ANEMIA, UNSPECIFIED Qualifiers: Anemia type: iron deficiency Iron deficiency anemia type: unspecified iron deficiency Qualified Code(s): D50.9 - Iron deficiency anemia, unspecified Comment/Plan: HISTORY 03/2016: Patient with anemia. MCV is normal, MCH, MCHC are low. This would suggest iron deficiency or chronic disease etiology. Suggest outpatient workup. Patient does have some renal insufficiency. It may be secondary to that. Iron is low, B12 low normal and folate-normal. UPDATE 06/2016: Anemia now worse. Patient reports he had some black and bloody stool 2 days ago but it resolved. Plan: Check labs. Hemoccult. Patient likely needs colonoscopy will refer to GI as an outpatient. (3) Hypoxia Acute R09.02 - HYPOXEMIA Comment/Plan: Plan: O2 by NC and increase to V mask if needed. (4) Tobacco abuse Acute Z72.0 - TOBACCO USE Comment/Plan: Counseled to quit. (5) Chronic kidney disease, stage 3 Acute N18.3 - CHRONIC KIDNEY DISEASE, STAGE 3 (MODERATE) Comment/Plan: Slightly above baseline. Plan: Avoid nephrotoxins. Monitor Cr. (6) Acute bronchitis Suspected J20.9 - ACUTE BRONCHITIS, UNSPECIFIED Comment/Plan: Rhonchi on exam. No pneumonia visible on x-ray. Could have bronchitis. Plan: If no improvement then consider antibiotics. - Plan Continue present therapy check ambulating O2 sats in a.m.. Case Care Discussed with: Patient Education/Counseling Given To: Patient Education/Counseling Given Regarding: Diagnosis, Treatment Total Time: 45 min Critical Care: No Couseling Time (>50% in counseling/coordination): No
[2016-06-17] MEDS ORDERED: ENOXAPARIN 30 MG/0.3 ML PFS SQ SCH (18:00)
[2016-06-18] MEDS: PANTOPRAZOLE 40 MG TAB PO SCH (05:27)
[2016-06-18] MEDS: FUROSEMIDE 40 MG/4 ML VIAL IV SCH ×2 (05:28→12:07)
[2016-06-18] MEDS: ISOSORBIDE DINITRATE 10 MG TAB PO SCH ×2 (05:28→14:01)
[2016-06-18 05:55] LABS: AUTOMATED BASOPHIL 1.6 % (0-2); AUTOMATED EOSINOPHIL 2.1 % (0-5); AUTOMATED LYMPH 20.4 % (17-44); AUTOMATED MONOCYTE 12.1 % (3-10); AUTOMATED NEUTROPHIL 63.8 % (45-76); MPV 9.2 fL (7.4-10.4)
[2016-06-18 06:05] LABS: BLOOD UREA NITROGEN 26 MG/DL (9-20); CALCIUM 8.5 MG/DL (8.4-10.2); CALCULATED OSMOLALITY 274 MOs/Kg (270-290); CHLORIDE 103 mEq/L (98-107); GLUCOSE 93 MG/DL (70-99); SODIUM LEVEL 140 mEq/L (137-146)
[2016-06-18] MEDS: ASPIRIN (CHEWABLE) 81 MG TAB PO SCH (07:47)
[2016-06-18] MEDS: LOSARTAN POTASSIUM 50 MG TAB PO SCH (07:48)
[2016-06-18] MEDS: AMIODARONE 200 MG TAB PO SCH (07:48)
[2016-06-18 12:58] VITALS: BP 172/48; PULSE 54; TEMP 97.7
--- NOTE | 2016-06-18 13:23 | PCM.DCS92 ---
- Final/Secondary Discharge Diagnosis (1) Acute on chronic diastolic congestive heart failure Acute I50.33 - ACUTE ON CHRONIC DIASTOLIC (CONGESTIVE) HEART FAILURE Present on Admission: Yes Comment: Per previous consult by Dr. Siddiqui, the patient has significant sinus node dysfunction and his beta blockers were stopped for this reason. The patient has both acute and chronic heart failure. Heart failure type: presumed diastolic. Echocardiogram results from past: Echo 03/2016: EF 55%. Plan: Admit to PCU with telemetry. CHF order set. Diet of 2 g Na. Daily weights with strict I/O's. No IVF unless patient is NPO. As tolerated, give ALICIA inhibitor or ARB. Give Lasix IV scheduled. Replace potassium. Monitor heart rate, blood pressure, and respiratory status carefully. Provide support with oxygen as needed. Provide teaching regarding heart failure, 2g Na diet, daily weights, signs of acute heart failure. He is tolerating therapy well will check ambulating O2 sats in a.m.. (2) Anemia Acute D64.9 - ANEMIA, UNSPECIFIED Present on Admission: Yes iron deficiency unspecified iron deficiency D50.9 - Iron deficiency anemia , unspecified Comment: HISTORY 03/2016: Patient with anemia. MCV is normal, MCH, MCHC are low. This would suggest iron deficiency or chronic disease etiology. Suggest outpatient workup. Patient does have some renal insufficiency. It may be secondary to that. Iron is low, B12 low normal and folate-normal. UPDATE 06/2016: Anemia now worse. Patient reports he had some black and bloody stool 2 days ago but it resolved. Plan: Check labs. Hemoccult. Patient likely needs colonoscopy will refer to GI as an outpatient. (3) Hypoxia Acute R09.02 - HYPOXEMIA Present on Admission: Yes Comment: Plan: O2 by NC and increase to V mask if needed. (4) Tobacco abuse Acute Z72.0 - TOBACCO USE Present on Admission: Yes Comment: Counseled to quit. (5) Chronic kidney disease, stage 3 Acute N18.3 - CHRONIC KIDNEY DISEASE, STAGE 3 (MODERATE) Present on Admission: Yes Comment: Slightly above baseline. Plan: Avoid nephrotoxins. Monitor Cr. (6) Acute bronchitis Suspected J20.9 - ACUTE BRONCHITIS, UNSPECIFIED Present on Admission: Yes Comment: Rhonchi on exam. No pneumonia visible on x-ray. Could have bronchitis. Plan: If no improvement then consider antibiotics. Discharge Disposition: Home Discharge Condition: Improved Cognitive Discharge Status: Unimpaired Fuctional Discharge Status: Independent Physician Follow up/Referrals: Yonis Salazar MD [Primary Care Provider] - One Week New Prescriptions: Losartan Potassium [Cozaar] 100 mg PO DAILY #30 tablet Furosemide [Lasix] 20 mg PO BID #60 tablet Discharge Home Medication List Aspirin [Aspirin, Chewable] 81 mg PO DAILY 10/18/12 [History Confirmed 06/16/16] Omeprazole [Prilosec] 20 mg PO DAILY 03/31/16 [History Confirmed 06/16/16] Hydralazine HCl 50 mg PO TID #90 04/02/16 [Rx Confirmed 06/16/16] Isosorbide Dinitrate 10 mg PO TID #90 tablet 04/02/16 [Rx Confirmed 06/16/16] Albuterol Sulfate [Proair Hfa] 2 puff INH Q4-6H PRN 06/16/16 [History Confirmed 06/16/16] Amiodarone [Cordarone, Pacerone] 200 mg PO BID 06/16/16 [History Confirmed 06/16] Furosemide [Lasix] 20 mg PO BID #60 tablet 06/18/16 [Rx] Losartan Potassium [Cozaar] 100 mg PO DAILY #30 tablet 06/18/16 [Rx] New Discharge Medications (Rx) Furosemide [Lasix] 20 mg PO BID #60 tablet 06/18/16 [Rx] Losartan Potassium [Cozaar] 100 mg PO DAILY #30 tablet 06/18/16 [Rx] O2 Device: Room Air Diet at Discharge: Cardiac, Low Salt Activity: No Restrictions, As Tolerated Call Office For: Worsening Symptoms, Fever over 100.5, Pain Uncontrolled By Meds - RI Summary Notes Hospital Course Note:: Discharge summary on patient named KELLE HANNA admitted to [facility] on 06/16/16 by Iraj Higginbotham MD. Date of discharge is []. Very pleasant 65-year-old gentleman presents to our facility with hypoxemia and shortness of breath. He was found to be in congestive heart failure. He was diuresed with 40 mg of IV Lasix 3 times a day and then switched to oral Lasix at discharge. His ejection fraction is 55-60% he has diastolic congestive heart failure. He does not qualify for statin therapy or anticoagulation. At this point patient is reached maximal benefit of hospitalization. He is stable for discharge home. Total Time: 55 min Heart Failure DC - Education Provide the following patient education: Yes Cardiac Prudent Diet (Restricted Salt Intake), Yes Tobacco Cessation(If any use in the past 30 days), Yes Heart Failure(Continuity Care) - Discharge Medications Beta Keysha Ordered: Contraindicated (See Below) Beta Keysha Contraindicated: Low Heart Rate Ejection Fraction (% or Description): 55-60 ALICIA/ARB Ordered (Patients with EF<40% use ALICIA INHIBITORS &/or ARBs): Home Medication Continued at Discharge - Physical Exam Vital Signs: Last Vital Signs Temp 97.7 F 06/18/16 12:00 Pulse 54 L 06/18/16 12:00 Resp 16 06/18/16 12:00 BP 172/48 L 06/18/16 12:00 Pulse Ox 98 06/18/16 12:00 Oxygen Pulse Oxygen Saturation 98 O2 Device Room Air Oxygen Flow Rate 2 Fraction of Inspired Oxygen ( FIO2) Constitutional: Alert (Awake), No apparent distress Oriented to: Time, Person, Place - HEENT Head: Normal ( normocephalic) Eye: Normal (PERRL, EOMI, Sclera white) Oropharynx: Normal (Pharynx:Moist without exudate,Gums-no swelling) Tympanic Membrane: Normal ENT EAC: Normal TMJ: Normal Nose: No Symptoms Reported (septum midline) - Respiratory/Cardiovascular Respiratory: negative: Accessory Muscle Use, Rales, Rhonchi, Wheezes - GI Auscultation: Normal (NABS) Tenderness: Non tender Rectal Exam: Heme negative stool - Musculoskeletal Back: Normal (Non-Tender) Extremities: Other (+1 pitting edema) - Integumentary Skin: Normal (Warm dry no rashes) Lymphatics: Normal (no adenopathy) - Neurologic Memory Impaired: Normal Motor Function: Normal (Motor 5/5 throughout.Normal tone, Pulses 2+ No cyanosis or edema, FROM) Cranial Nerve: Normal (CN II-XII intact sensation, strength 5/5) Cerebellar: Normal (Babinski: toes downgoing bilaterally. Intact Finger to nose. Sensory grossly intact to light touch. Intact rapid alternating movements bilaterally. No pronator drift.) Mood Description: Normal Perception: Normal (Normal and appropriate affect.)
== END 2016-06-18 14:25 | disposition home or self-care (01) | DRG 293 ==
LOC: ED 16:01 → PCU 18:43
PROVIDERS: ADMIT Internal Medicine; ATTEND Hospitalist
PROC: 039C3ZZ Drainage of Left Radial Artery, Percutaneous Approach (ICD-10-PCS; principal; 2016-06-16)
DX: I50.33 Acute on chronic diastolic (congestive) heart failure (principal); I49.5 Sick sinus syndrome; N18.3 Chronic kidney disease, stage 3 (moderate); I08.1 Rheumatic disorders of both mitral and tricuspid valves; D50.9 Iron deficiency anemia, unspecified; F17.210 Nicotine dependence, cigarettes, uncomplicated; I12.9 Hypertensive chronic kidney disease with stage 1 through stage 4 chronic kidney disease, or unspecified chronic kidney disease; R09.02 Hypoxemia; J20.9 Acute bronchitis, unspecified; Z79.82 Long term (current) use of aspirin; Z79.899 Other long term (current) drug therapy
CPT/HCPCS: 36415; 36600; 71020; 80048; 80053; 80061; 81001; 82550; 82553; 82607; 82728; 82746; 82803; 83540; 83550; 83735; 83880; 84484; 85025; 85045; 85610; 85730; 86850; 86900; 86901; 93005; 96372; 96374; 97161; 99284; 99406; G0237; J1650; J1940; J3490